=== PATIENT | female | born 1945 | race Two or more races ===

== ENCOUNTER 2016-07-23 20:55 | Emergency (ER) | payer MEDICARE ==
--- NOTE | ~2016-07-23 | CR181 ---
[facility] A Service of [facility] RADIOLOGY TEXT RESULTS PATIENT: AMI CALDWELL LOCATION: SED : 47 UNIT #: [id number] AGE: [address]: Reed Peguero MD SEX: F ORDER DR: [id number] [address] [address] [id number] E MR#: [id number] Acc #: [id number] NAME: AMI CALDWELL : 1945 SEX: F STUDY DATE/TIME: 07/23/2016 20:47 UNIT: SED ROOM: STUDY DESCRIPTION: CR Lumbar Spine 2 or 3 Views Attending Physician: Reed Peguero M.D. Ordering Physician: Reed Peguero M.D. Primary Care Physician: Primary Care Physician No MEDICAL IMAGING REPORT This report is preliminary unless electronic signature is present. 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 EXAM 3 views lumbar spine performed on 07/23/2016. HISTORY 70-year-old female with low back pain. FINDINGS The vertebral bodies demonstrate normal height and alignment. The intervertebral discs are normal in height, except for narrowing at the L2-3 and L5-S1 levels. No fracture or subluxation is appreciated. A mild scoliosis is present, concavity to the left and convexity to the right. Atherosclerotic calcification is seen in the abdominal aorta but no aneurysmal dilatation is appreciated. IMPRESSION Degenerative changes and scoliosis but no fracture or instability identified. STAT * RESULT Dictated by... Audie Perez M.D. THIS IS AN ELECTRONICALLY VERIFIED REPORT Audie Perez M.D. at 07/24/2016 6:56 PM RP/psc [facility] A Service of [facility] RADIOLOGY TEXT RESULTS PATIENT: AMI CALDWELL LOCATION: SED : 46 UNIT #: [id number] AGE: [address]: Reed Peguero MD SEX: F ORDER DR: TD: 07/23/2016 21:08 JOB #: [id number] MEDICAL IMAGING REPORT
[~2016-07-23 20:55] MED LIST: B/P PO; BACLOFEN10 MG PO; DICLOFENAC PO; FLEXERIL10 M1 PO; HYDROCODON-ACE1 EAC9 PO; LISINOPRIL20 MG PO; LORTAB 5/500 TA1 TA1 PO; NO MEDICATIONS; OMEPRAZOLE40 MG PO; PRILOSEC20 M1 PO; ROBAXIN 750750 M1 PO; SILVADENE TOP; TYLENOL #3 PO; ULTRAM PO; UNKNOWN BP PILL
[2016-07-23 21:12] LABS: URINE SOURCE CLEAN CATCH
[2016-07-23 21:14] LABS: MICRO INDICATED? YES; URINE APPEARANCE CLEAR; URINE BILIRUBIN NEG (NEG); URINE BLOOD NEG (NEG); URINE COLOR YELLOW; URINE GLUCOSE NEG (NORM); URINE KETONE NEG (NEG); URINE LEUKOCYTE ESTERASE 1+ (NEG); URINE NITRATE NEG (NEG); URINE PROTEIN NEG (NEG); URINE SPECIFIC GRAVITY 1.025 (1.003-1.035); URINE UROBILINOGEN 0.2 MG/DL (NORM)
[2016-07-23 21:19] LABS: CULTURE INDICATED? YES; URINE BACTERIA 1+ (NEG); URINE MUCUS PRESENT; URINE RBC 0-2 /[HPF] (0-2); URINE SQUAMOUS EPITHELIAL CELL OCCAS /[HPF]
== END 2016-07-23 22:30 | disposition home or self-care (01) ==
LOC: SED 20:55
PROVIDERS: Emergency Medicine
DX: N30.90 Cystitis, unspecified without hematuria (principal); F17.200 Nicotine dependence, unspecified, uncomplicated; Z91.040 Latex allergy status; Z88.8 Allergy status to other drugs, medicaments and biological substances; Z79.899 Other long term (current) drug therapy
CPT/HCPCS: 72100; 81003; 87086; 99283

== ENCOUNTER 2016-08-31 20:13 | Emergency (ER) | payer MEDICARE ==
--- NOTE | ~2016-08-31 | CR63 ---
[facility]. [facility] A Service of [facility] & [facility] RADIOLOGY TEXT RESULTS PATIENT: AMI CALDWELL LOCATION: SED : 46 UNIT #: [id number] AGE: [address]: JENNIFER BARAKAT PA-C SEX: F ORDER DR: [id number] [address] [address] [id number] E MR#: [id number] Acc #: [id number] NAME: AMI CALDWELL : 1945 SEX: F STUDY DATE/TIME: 08/31/2016 20:22 UNIT: SED ROOM: STUDY DESCRIPTION: CR Chest 2 View Attending Physician: Jennifer Barakat Pa-C Ordering Physician: Physician Non-Staff Primary Care Physician: Primary Care Physician No MEDICAL IMAGING REPORT This report is preliminary unless electronic signature is present. EXAM Chest PA and lateral, 08/31/2016 HISTORY Cough for 3 weeks. Benign essential hypertension. FINDINGS PA and lateral examination of the chest upright shows a good expansion of the parenchyma with a normal distribution of the pulmonary vascularity. There is no indication of congestion, effusion, infiltrate, tumor, or nodular density. The pleural reflections and diaphragmatic contours are normal. The cardiac silhouette and mediastinal anatomy is within normal limits. IMPRESSION Normal chest. Dictated by... Jay Greer M.D. THIS IS AN ELECTRONICALLY VERIFIED REPORT Jay Greer M.D. at 09/01/2016 10:28 AM JESSICA/bahman TD: 09/01/2016 01:42 JOB #: [id number] MEDICAL IMAGING REPORT Page 1 of 1
== END 2016-08-31 23:03 | disposition home or self-care (01) ==
LOC: SED 20:13
DX: R05 Cough (principal); I10 Essential (primary) hypertension; Z90.710 Acquired absence of both cervix and uterus; F17.210 Nicotine dependence, cigarettes, uncomplicated; Z91.040 Latex allergy status; Z91.041 Radiographic dye allergy status; Z79.899 Other long term (current) drug therapy
CPT/HCPCS: 71020; 94640; 99283

== ENCOUNTER 2016-10-27 17:21 | Emergency (ER) | payer MEDICARE | END 2016-10-27 19:15 | disposition home or self-care (01) | LOC: SED 17:21 | DX: N76.4 Abscess of vulva (principal); I10 Essential (primary) hypertension; Z87.440 Personal history of urinary (tract) infections; F17.210 Nicotine dependence, cigarettes, uncomplicated; Z91.041 Radiographic dye allergy status; Z79.899 Other long term (current) drug therapy | CPT/HCPCS: 56405; 87070; 87077; 87186; 87205; 99283 ==